=== PATIENT | male | born 1975 | race Caucasian/White ===

== ENCOUNTER 2021-02-01 15:51 | Emergency (ER) | payer OTHER, SELFPAY ==
--- NOTE | 2021-02-01 16:34 | ED.UPPEXIN ---
HPI - Extremity Injury (Upper) General Chief Complaint: Extremity Injury, Upper Stated Complaint: lt arm arm pain Time Seen by Provider: 02/01/21 16:34 Source: patient and RN notes reviewed History of Present Illness HPI narrative: Patient is a 45-year-old male who presents the urgent care with complaints of left upper arm pain for approximately 1 week. Patient denies of any strenuous activity, heavy pushing/pulling. Denies of any known injury or trauma to the arm. Patient denies any chest pain or shortness of breath. Patient states it is worse at rest and feels better when extended out right or above his head. Patient has been using all the [id number] medication with no relief . No other acute complaints. No acute distress noted. Patient aware of the plan of care. Some parts of this dictation were generated by voice recognition software and may contain typographical and/or grammatical inaccuracies. Related Data Allergies Allergy/AdvReac Type Severity Reaction Status Date / Time No Known Allergies Allergy Verified 02/01/21 17:12 Review of Systems Review of Systems: CONSTITUTIONAL: Denies fever, chills, or sweats. EYES: Denies visual changes, redness, or discharge. ENT: Denies rhinorrhea, congestion, sore throat, or otalgia. CARDIOVASCULAR: Denies chest pain, palpitations, or edema. RESPIRATORY: Denies cough or dyspnea. GASTROINTESTINAL: Denies abdominal pain, nausea, vomiting, or diarrhea. GENITOURINARY: Denies dysuria or hematuria. SKIN: Denies rash or itching. MUSCULOSKELETAL: Reports of left upper arm pain NEUROLOGIC: Denies headache, numbness, or weakness. All other systems reviewed are negative, except as documented in HPI. PMFSH Comments At the time of my signature, I reviewed and agree with the nursing past medical, surgical, social, and family history. There is no relevant family history pertinent to the patient complaint. Exam Narrative: GENERAL: This is a well-nourished, well-developed patient, in no apparent distress. HEAD: normocephalic, atraumatic. EYES: PERRL. Sclera clear/white. Vision is grossly intact. EARS: External ears normal NOSE: External nose normal with no obvious nasal discharge, nares without redness, no rhinorrhea. THROAT: Mucous membranes moist NECK: Neck supple CARDIOVASCULAR: Regular rate and rhythm without murmurs, gallops, or rubs. RESPIRATORY: Clear to auscultation. Breath sounds equal bilaterally. No wheezes, rales, or rhonchi. SKIN: warm, intact with no suspicious lesions or rash, good texture and turgor. NEURO: awake, alert, and oriented to person, place and time. There were no obvious focal neurologic abnormalities. EXTREMITIES: No obvious ecchymosis, edema or injury noted to the left upper arm. Range of motion to left upper arm within normal limits. Positive strong left radial pulse with capillary refill less than 2 seconds. Course Vital Signs Vital signs: Vital Signs Temperature 97.9 F 02/01/21 16:37 Pulse Rate 65 02/01/21 16:37 Respiratory Rate 18 02/01/21 16:37 Blood Pressure 139/90 02/01/21 16:37 Pulse Oximetry 99 02/01/21 16:37 Temperature 97.9 F 02/01/21 16:37 Pulse Rate 65 02/01/21 16:37 Respiratory Rate 18 02/01/21 16:37 Blood Pressure 139/90 02/01/21 16:37 Pulse Oximetry 99 02/01/21 16:37 Reviewed MDM - Extremity Injury (Upper) MDM Narrative Medical decision making narrative: Reviewed EKG results with the patient. He is aware that EKG appears to be within normal limits with the exception of notable artifact. Advised the patient to be aware of signs and symptoms of worsening condition such as chest pain, shortness of breath, traveling pain up the jaw or through to the back. If such symptoms develop occur?go directly to the emergency room. We are unable to rule out complete cardiac events at our facility. Pain does appear to be more muscular or nerve related. Advised the patient to rest the arm and avoid any strenuous a
[2021-02-01 16:37] VITALS: BP 139/90; PULSE 65; RESP 18; TEMP 36.6; O2SAT 99
--- NOTE | 2021-02-01 16:54 | ECG_ITS ---
Measurements Intervals [place] Rate: 65 P: 12 KS: 183 QRS: -12 QRSD: 103 T: 56 QT: 408 QTc: 426 Interpretive Statements SINUS RHYTHM DELAYED PRECORDIAL R/S TRANSITION NONSPECIFIC T-WAVE ABNORMALITY- HIGH LATERAL LEADS BASELINE ARTIFACT- V4-V6 BORDERLINE ECG Electronically Signed On 02-01-2021 17:51:46 ENTRY [employer] TECHNICIAN by Neymar Kelley D.O.
== END 2021-02-01 17:18 | disposition home or self-care (01) ==
PROVIDERS: Emergency Provider Nurse Practitioner Family
DX: M79.622 Pain in left upper arm (principal)
CPT/HCPCS: 93005; 99203; G0463